=== PATIENT | female | born 1970 | race Caucasian/White ===

== ENCOUNTER → 2017-06-19 | Outpatient (CLI) | payer MEDICARE, MEDICAID ==
[~2017-06-19] MED LIST: ISOVUE-300 61% 50ML VIAL (Q9967) As Ordered ONE; LIDOCAINE 2% MDV 20 ML VIAL As Ordered ONE; MIDAZOLAM INJ 2 MG/2 ML VIAL (J2250) As Ordered ONE; fentaNYL 100 MCG/2 ML INJECTION (J3010) As Ordered ONE
--- NOTE | 2017-07-05 13:40 | REPKIM ---
DATE OF PROCEDURE: 06/19/2017 PREPROCEDURE DIAGNOSES: Chronic renal insufficiency nearing end stage renal disease, left upper extremity swelling. POSTPROCEDURE DIAGNOSES: Chronic renal insufficiency nearing end stage renal disease, left upper extremity swelling. PROCEDURE: Left brachiocephalic arteriovenous fistulogram left subclavian vein and innominate vein angioplasty with 8 x 40 and 10 x 40 balloons. SURGEON: Dr. Horacio Daley. GAS ENGINE OPERATOR COMPRESSORS: Shelley Calloway. ANESTHESIA: Local with 2 mg of Versed and 2 mL of 2% lidocaine. ESTIMATED BLOOD LOSS: CONTRAST: 4 mL. HEPARIN: None. COMPLICATIONS: None. DRAINS: None. SPECIMENS: None. IMPLANTS: None. SEDATION TIME: 14:50 p.m. to 15:24 p.m. Sedation was administered by myself. The cardiopulmonary monitoring was performed by the nurse in the room. I was present for and directed the entire case. INDICATION: The patient is a 47-year-old female who underwent creation of a left brachiocephalic arteriovenous fistula and now has extensive swelling in the left upper extremity as well as pulsatility in the left brachiocephalic arteriovenous fistula. Patient will undergo a fistulogram with possible angioplasty and/or stent. Risks, benefits and alternative treatment options were discussed with the patient. PROCEDURE: The patient was taken to the angiography suite and placed supine on the angiography room table and the left upper extremity was prepped and draped in a standard surgical fashion. The arteriovenous fistula was then cannulated with a micropuncture needle after anesthetizing the overlying skin with 1% lidocine. The micropuncture wire was advanced through the micropuncture needle which was upsized to a micropuncture sheath. 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 This lesion was crossed after which it was angioplastied first with a 10 x 40 balloon with inability to fully efface the balloon. This was further angioplastied with an 8 x 40 conquest balloon and then dilated with a 10 x 40 balloon with full effacement of the balloon. The fistula had a good thrill at the completion of the angioplasty and followup fistulogram showed good resolution of the stenosis. Catheters and wires were removed. A #2-0 Prolene suture was placed at the puncture site which was removed once the hemostasis was obtained and the patient was discharged thereafter. Dressings were applied. All instrument, sponge and needle counts were correct at the end of the case. There were no complications. Dr. Daley was present for and directed the entire case. RADIOLOGICAL SUPERVISION INTERPRETATION: The initial fistulogram showed stenosis at the subclavian vein/innominate vein junction. This was angioplastied with 8 and 10 mm balloons with resolution of the stenosis after which there was a good thrill in the fistula.
== END | disposition home or self-care (01) ==
LOC: M IRPRO 13:41
PROVIDERS: ATTEND Surgery Vascular Surgery
DX: T82.858A Stenosis of other vascular prosthetic devices, implants and grafts, initial encounter (principal); N18.6 End stage renal disease
CPT/HCPCS: 36901; 36907; 99152; 99153; C1725; C1769; C1887; C1894; J2250; J3010; Q9967

== ENCOUNTER → 2017-08-11 | Outpatient (CLI) | payer MEDICARE, MEDICAID ==
[~2017-08-11] MED LIST changes: +BUPIVACAINE HCL 0.25% 10 ML VIAL As Ordered ONE; -LIDOCAINE 2% MDV 20 ML VIAL As Ordered ONE
--- NOTE | 2017-09-13 08:06 | REPIR ---
DATE OF PROCEDURE: 08/11/2017 PREPROCEDURE DIAGNOSES: Chronic renal insufficiency nearing end stage renal disease, left upper extremity swelling and pain, left brachiocephalic arterial venous fistula. POSTPROCEDURE DIAGNOSES: Chronic renal insufficiency nearing end stage renal disease, left upper extremity swelling and pain, left brachiocephalic arterial venous fistula. PROCEDURE: Left brachiocephalic internal venous fistulogram, left axillary vein angioplasty with 10 x 8 and 12 x 8 balloon, left subclavian vein angioplasty with 10 x 8 and 12 x 8 balloon, left innominate vein angioplasty with 10 x 8 and 12 x 8 balloon, superior vena cava angioplasty with 10 x 8 and 12 x 8 balloon. SURGEON: Dr. Horacio Daley. DIRECTOR OF LITIGATION: Shelley Calloway. ANESTHESIA: Local with sedation with 3 mg of Versed, 100 mcg of Fentanyl and 4 mL of 0.25% Marcaine. ESTIMATED BLOOD LOSS: CONTRAST: 3 mL. SEDATION TIME: From 10:15 a.m. to 10:55 a.m. for a total of 40 minutes with the sedation and cardiopulmonary monitoring performed by the nurse in the room under my direct supervision. I was present for and directed the entire case. HEPARIN: None. COMPLICATIONS: None. DRAINS: None. IMPLANTS: None. INDICATION: Patient is a 47-year-old female with chronic renal insufficiency nearing end stage renal disease who underwent creation of a left brachiocephalic arteriovenous fistula and developed swelling in the left upper extremity. Patient previously has undergone angioplasty of the axillary vein, subclavian vein, innominate vein and superior vena cava. Patient now has recurrent swelling and will undergo a fistulogram with possible angioplasty and/or stent. Risks, benefits and alternative treatment options were discussed with the patient. PROCEDURE: The patient was taken to the angiography suite and placed supine on the angiography room table and then the left upper extremity was prepped and draped in a standard surgical fashion. The arteriovenous fistula was cannulated with a micropuncture needle after anesthetizing the overlying skin with 1% lidocaine. The micropuncture wire was advanced through the micropuncture needle which was upsized to a micropuncture sheath. A fistulogram was performed showing the cephalic vein to be patent to the subclavian vein where there was occlusion of the subclavian vein, axillary vein, innominate vein and superior vena cava. The axillary vein, subclavian vein, innominate vein and superior vena cava were angioplastied with a 10 x 8 balloon with a followup fistulogram performed after recanalization and angioplasty showing residual stenosis. The subclavian vein, innominate vein and superior vena cava were further angioplastied with a 12 x 8 balloon with followup angiogram showing resolution of the stenosis. Catheters and wires were removed. A #2-0 Prolene suture was placed at the puncture site which was subsequently removed before discharge for hemostasis. Dressings were then applied. Patient tolerated the procedure well. All instrument, sponge and needle counts were correct at the end of the case. There were no complications. Dr. Daley was present for and directed the entire case. Patient was transferred to the holding area and subsequently discharged in stable condition. RADIOLOGIC SUPERVISION INTERPRETATION: The fistulogram showed occlusion of the subclavian vein, innominate vein and superior vena cava. These were recanalized and an angioplasty first with a 10 x 8 balloon with residual stenosis remaining on followup angiography and followup angioplasty with a 12 x 8 balloon was performed with good opening of the vein and no residual stenosis remaining. There was a thrill in the fistula at the completion of the intervention.
== END | disposition home or self-care (01) ==
LOC: M IRPRO 09:16
PROVIDERS: ATTEND Surgery Vascular Surgery
DX: T82.898A Other specified complication of vascular prosthetic devices, implants and grafts, initial encounter (principal); N18.9 Chronic kidney disease, unspecified
CPT/HCPCS: 36902; 36907; 99152; 99153; C1725; C1769; C1887; C1894; J2250; J3010; Q9967

== ENCOUNTER → 2018-02-16 | Outpatient (CLI) | payer MEDICARE, MEDICAID ==
[~2018-02-16] MED LIST changes: +BUPIVACAINE HCL 0.25% 10 ML VIAL As Ordered; -BUPIVACAINE HCL 0.25% 10 ML VIAL As Ordered ONE; +ISOVUE-300 61% 50ML VIAL (Q9967) As Ordered; -ISOVUE-300 61% 50ML VIAL (Q9967) As Ordered ONE; +MIDAZOLAM INJ 2 MG/2 ML VIAL (J2250) As Ordered; -MIDAZOLAM INJ 2 MG/2 ML VIAL (J2250) As Ordered ONE; +fentaNYL 100 MCG/2 ML INJECTION (J3010) As Ordered; -fentaNYL 100 MCG/2 ML INJECTION (J3010) As Ordered ONE
== END | disposition home or self-care (01) ==
LOC: M IRPRO 10:18
DX: T82.898A Other specified complication of vascular prosthetic devices, implants and grafts, initial encounter (principal); N18.9 Chronic kidney disease, unspecified
CPT/HCPCS: 36901